=== PATIENT | male | born 1985 | race Caucasian/White ===

== ENCOUNTER 2017-06-23 20:17 | Emergency (ER) | payer BC, OTHER ==
[~2017-06-23] VITALS: Ht 185.4 cm; Wt 86.2 kg
--- OUTSIDE RECORDS SUMMARY | 2017-06-23 20:23 | XMS REPORT ---
Author Author YONY SILVERMAN [facility] eClinicalWorks Address Unknown Phone Unavailable Care Team Providers Care Tree Wrapper Name Role Phone YONY SILVERMAN CP Unavailable Allergies, Adverse Reactions, Alerts Substance Reaction Event Type N.K.D.A. Info Not Available Non Drug Allergy Problems Problem Type Condition Code Onset Dates Condition Status Assessment Left hamstring injury S76.302A Active Problem Screening examination for pulmonary tuberculosis V74.1 Active Medications No Known Medications Procedures Procedure Coding System Code Date Office Visit, Est Pt., Level 3 CPT-4 19666 June 19, 2015 Vital Signs Date/Time: June 19, 2015 Temperature 98.5 F Weight 200 lbs Height 73 in BMI 26.38 Index Blood Pressure Diastolic 70 mmHg Blood Pressure Systolic 120 mmHg Cardiac Monitoring Heart Rate 68 bpm Results No Known Results Summary Purpose eClinicalWorks Submission
--- OUTSIDE RECORDS SUMMARY | 2017-06-23 20:23 | XMS REPORT ---
Author Author SARAH FRY [facility] Address [address] [place] [address] Care Team Providers Care Tube Wrapper Name Role Phone SARAH FRY Unavailable PROBLEMS Type Condition ICD9-CM Code [id number] Code Onset Dates Condition Status SNOMED Code Problem Screening examination for pulmonary tuberculosis V74.1 Active [id number] ALLERGIES No Information SOCIAL HISTORY Never Assessed PLAN OF CARE VITAL SIGNS MEDICATIONS No Known Medications RESULTS No Results PROCEDURES No Known procedures IMMUNIZATIONS No Known Immunizations
--- OUTSIDE RECORDS SUMMARY | 2017-06-23 20:23 | XMS REPORT | Continuity of Care Document ---
Author Author [facility] Address Unknown Phone Unavailable Allergies There is no data. Medications There is no data. Problems Date Dx Coded Attending Type Code Diagnosis Diagnosed By 02/16/2013 SARAH FRY DO V74.1 TB SCREENING Procedures [place] [address] TB TEST INTRADERMAL 02/16/2013 BLOOD PRESSURE CHECK 02/16/2013 Results There is no data. Encounters ACCT No. Visit Date/Time Discharge Status Pt. Type Provider Facility Loc./Unit Complaint [id number] 02/16/2013 11:57:00 02/16/2013 23:59:59 [place] [id number] 06/21/2017 08:40:00 ACT Outpatient [facility]
--- OUTSIDE RECORDS SUMMARY | 2017-06-23 20:23 | XMS REPORT ---
Author Author MIRIAN ESQUIVEL Organization [facility] Address [address] [place] [address] Care Team Providers Care Message Broker Developer Name Role Phone ESQUIVELMIRIAN Fisher Unavailable PROBLEMS Type Condition ICD9-CM Code [id number] Code Onset Dates Condition Status SNOMED Code Problem Screening examination for pulmonary tuberculosis V74.1 Active [id number] ALLERGIES Substance Reaction Event Type Date Status Penicillin G Potassium Unknown Drug Allergy Mar, Active Amoxicillin Unknown Drug Allergy Mar, Active SOCIAL HISTORY Never Assessed PLAN OF CARE Activity Details Follow Up prn Reason: VITAL SIGNS Height 73 in 2016-04-06 Weight 205.8 lbs 2016-04-06 Temperature 98.1 degrees Fahrenheit 2016-04-06 Heart Rate 76 bpm 2016-04-06 Respiratory Rate 18 2016-04-06 BMI 27.15 kg/m2 2016-04-06 Blood pressure systolic 102 mmHg 2016-04-06 Blood pressure diastolic 74 mmHg 2016-04-06 MEDICATIONS Medication Instructions Dosage Frequency Start Date End Date Duration Status Ibuprofen 200 MG Orally every 6 hrs 1 tablet as needed 6h Active Azithromycin 250 MG Orally Once a day 2 tablets on the first day, then 1 tablet daily for 4 days 24h Mar, Mar, 5 day(s) Active Airborne - Active Robitussin Cold/Congestion Active RESULTS Name Result Date Reference Range STREP A (IN HOUSE) STREP A Positive Control + Lot # Exp date PROCEDURES Procedure Date Ordered Result Body Site STREP A ASSAY W/OPTIC Apr 06, 2016 IMMUNIZATIONS No Known Immunizations
[2017-06-23] MEDS ORDERED: LIDOCAINE 2% 20 ML (XYLOCAINE) VIAL INJ ONE (20:30)
--- NOTE | 2017-06-23 20:34 | ED Upper Extremity ---
General Chief Complaint: Laceration Stated Complaint: R HAND PINKIE LACERATION Source: patient Exam Limitations: no limitations History of Present Illness Date Seen by Provider: June 23, 2017 Time Seen by Provider: 20:31 Initial Comments To ER with a laceration to the palmar surface proximal phalanx left hand fifth finger from a broken bowl. Tetanus is up-to-date. Onset: just prior to arrival Severity: mild Pain/Injury Location: left 5th finger Modifying Factors: Worse With Movement Allergies and Home Medications Allergies Coded Allergies: Penicillins (Verified Allergy, Unknown, 06/23/17) Patient Home Medication List Home Medication List Reviewed: Yes Constitutional: see HPI EENTM: see HPI Respiratory: no symptoms reported Cardiovascular: no symptoms reported Genitourinary: no symptoms reported Musculoskeletal: no symptoms reported Skin: no symptoms reported Psychiatric/Neurological: No Symptoms Reported Past Dsuwzbv-Wlosif-Akmwjo Hx Patient Social History Alcohol Use: Denies Use Recreational Drug Use: No Smoking Status: Never a Smoker Recent Foreign Travel: No Contact w/Someone Who Travel: No Recent Hopitalizations: No Past Medical History Surgeries: Yes (ORAL) Respiratory: No Cardiac: No Neurological: No Genitourinary: No Gastrointestinal: No Musculoskeletal: No Endocrine: No HEENT: No Cancer: No Psychosocial: No Integumentary: No Blood Disorders: No Physical Exam Vital Signs Vital Signs - First Documented 06/23/17 20:28 Temp 98.1 Pulse 93 Resp 20 B/P (MAP) 122/81 (95) Pulse Ox 98 O2 Delivery Room Air Capillary Refill : Less Than 3 Seconds General Appearance: WD/WN, no apparent distress HEENT: PERRL/EOMI, normal ENT inspection Neck: non-tender, full range of motion Respiratory: no respiratory distress, no accessory muscle use Gastrointestinal: normal bowel sounds, non tender Shoulder: normal inspection, non-tender Elbow/Forearm: normal inspection, non-tender, Left Wrist: Yes normal inspection, Yes non-tender Hand: Left, laceration (1 cm laceration to the palmar surface proximal phalanx left hand. Bleeding is controlled. Depth is to the subcutaneous tissue. He is able to flex the finger and maintains distal sensation and capillary refill. No evidence of flexor tendon injury.) Neurologic/Psychiatric: alert, normal mood/affect, oriented x 3 Skin: normal color, warm/dry Procedures/Interventions Wound Location: Upper Extremities Wound Length (cm): 1 Wound's Depth, Shape: linear, sub Q Wound Explored: clean Anesthesia: 1% Lidocaine Volume Anesthetic (ccs): 1 Suture: Ethlion Suture Size: 5-0 Number of Sutures: 3 Layer Closure?: 1 Number Deep Layer Sutures: 0 Progress Finger laceration anesthetized locally with 1 mL of 2% lidocaine without epinephrine. Wound then scrubbed with chlorhexidine/saline solution. Wound then explored and no foreign bodies were identified. Closed with 3 simple interrupted sutures size 5-0 Ethilon. Progress/Results/Core Measures My Orders Orders - GABI AJ APRN Lidocaine 2% Injection 20 Ml (Xylocaine (06/23/17 20:30) Medications Given in ED Current Medications Medications Dose Ordered Sig/Charles Route Start Time Stop Time Status Last Admin Dose Admin Lidocaine HCl 20 ml ONCE ONCE INJ 06/23/17 20:30 06/23/17 20:32 DC 06/23/17 20:34 20 ML Vital Signs/I&O 06/23/17 20:28 Temp 98.1 Pulse 93 Resp 20 B/P (MAP) 122/81 (95) Pulse Ox 98 O2 Delivery Room Air Departure Impression Primary Impression: Finger laceration Disposition: HOME, SELF-CARE Condition: Stable Departure-Patient Inst. Decision time for Depature: 20:33 Referrals: [facility] [place] ([place]/Family) Primary Care Physician Patient Instructions: Laceration Repair With Stitches (DC) Add. Discharge Instructions: 1. Return to the emergency room to have the stitches removed in 7-10 days 2. Return to ER for any concerns 3. You may shower allowing water to run over the finger starting tomorrow but do not submerge and soak it in water such as a hot tub, bath tub or swimming pool until the stitches have been removed. All discharge instructions reviewed with patient and/or family. Voiced understanding. GABI AJ APRN June 23, 2017 20:34
[2017-06-23 20:56] VITALS: BP 0/0
== END 2017-06-23 20:56 | disposition home or self-care (01) ==
LOC: ER 20:20
DX: S61.211A Laceration without foreign body of left index finger without damage to nail, initial encounter (principal); Z88.0 Allergy status to penicillin; W25.XXXA Contact with sharp glass, initial encounter
CPT/HCPCS: 12011